=== PATIENT | male | born 1945 | race Caucasian/White ===

== ENCOUNTER 2020-07-02 17:56 | Emergency (ER) | payer OTHER ==
[2020-07-02 18:16] LABS: #Eosinphils 0.1 10x3/uL (0.0-0.5); #Monocytes 0.4 10x3/uL (0.0-1.1); #Neutrophils 4.6 10x3/uL (1.5-8.4); %Basophils 0.3 % (0.0-2.0); %Eosinophils 1.3 % (0.0-6.0); %Lymphocytes 15.1 % (18.0-47.0); %Monocytes 7.2 % (0.0-10.0); %Neutrophils 75.6 % (40.0-75.0); Hemoglobin 12.3 g/dL (13.5-17.5); Mean Corpuscular HGB CONC 33.2 g/dL (32.0-36.0); Mean Corpuscular Hemoglobin 28.8 pg (27.0-33.0); Mean Corpuscular Volume 86.9 fl (81.2-95.1); Mean Platelet Volume 9.8 fl (7.4-10.4); Platelet Count 141 10x3/uL (150-450); RBC Distribution Width 12.5 % (11.5-14.5); Red Blood Cell (RBC) Count 4.27 10x6/uL (4.32-5.72); White Blood Cell (WBC) Count 6.1 10x3/uL (3.5-10.5)
[2020-07-02 18:27] LABS: Acetaminophen Less than 6.0 mcg/mL (10.0-30.0); Alcohol Less than 10 mg/dL (Less than 10); Salicylate Less than 8.0 mg/dL (15.0-30.0)
[2020-07-02 18:28] LABS: ALT (SGPT) 8 U/L (8-55); AST (SGOT) 14 U/L (5-34); Albumin 3.2 g/dL (3.4-4.8); Alkaline Phosphatase 69 U/L (40-110); Anion Gap 12 mmol/L (10-20); BUN (Urea Nitrogen) 21 mg/dL (8.4-25.7); Bilirubin, Total 0.4 mg/dL (0.2-1.2); Calc. Creatinine Clearance 0 mL/min (70-130); Calcium 7.9 mg/dL (7.8-10.44); Carbon Dioxide 26 mmol/L (23-31); Chloride 102 mmol/L (98-107); Globulin 2.2 g/dL (2.4-3.5); Glucose 111 mg/dL (83-110); Lipase 67 U/L (8-78); Potassium 3.5 mmol/L (3.5-5.1); Protein, Total 5.4 g/dL (5.8-8.1); Sodium 136 mmol/L (136-145)
[2020-07-02 20:10] LABS: Bilirubin Neg (Negative); Blood, Urine Negative (Negative); Clarity Clear (Clear); Glucose, Urine (Dipstick) Normal (Negative); Ketone, Urine Negative (Negative); Leukocyte Negative (Negative); Nitrite Negative (Negative); Protein, Urine (Dipstick) Negative (Neg-Trace); Specific Gravity, Urine 1.005 (1.002-1.036); Urobilinogen Normal mg/dL (Less than 2)
[2020-07-02 20:18] LABS: Amphetamine Not Detected (NotDetected); Barbiturates Screen Not Detected (NotDetected); Benzodiazepine Screen Not Detected (NotDetected); Cocaine Metabolite Screen Not Detected (NotDetected); Methadone Not Detected (NotDetected); Methamphetamine Not Detected (NotDetected); Opiate Screen Not Detected (NotDetected); Oxycodone Screen Not Detected (NotDetected); Phencyclidine (PCP) Not Detected (NotDetected); THC/Cannabinoid Screen Not Detected (NotDetected); Tricyclic Screen Not Detected (NotDetected)
== END 2020-07-03 13:43 | disposition short-term general hospital (02) ==
LOC: CSHERS 17:56
DX: R41.82 Altered mental status, unspecified (principal); R55 Syncope and collapse; E03.9 Hypothyroidism, unspecified; I10 Essential (primary) hypertension; Z79.899 Other long term (current) drug therapy
CPT/HCPCS: 70450; 71045; 71275; 74174; 80053; 80306; 80307; 81003; 83690; 84484; 85025; 93005

== ENCOUNTER 2020-07-23 12:49 | Observation (INO) | payer OTHER ==
[2020-07-23 13:25] LABS: #Eosinphils 0.1 10x3/uL (0.0-0.5); #Monocytes 0.3 10x3/uL (0.0-1.1); #Neutrophils 4.4 10x3/uL (1.5-8.4); %Basophils 0.4 % (0.0-2.0); %Eosinophils 1.6 % (0.0-6.0); %Lymphocytes 10.6 % (18.0-47.0); %Monocytes 6.2 % (0.0-10.0); %Neutrophils 80.8 % (40.0-75.0); Hemoglobin 12.6 g/dL (13.5-17.5); Mean Corpuscular HGB CONC 32.8 g/dL (32.0-36.0); Mean Corpuscular Hemoglobin 28.9 pg (27.0-33.0); Mean Corpuscular Volume 88.1 fl (81.2-95.1); Mean Platelet Volume 9.6 fl (7.4-10.4); Platelet Count 146 10x3/uL (150-450); RBC Distribution Width 12.5 % (11.5-14.5); Red Blood Cell (RBC) Count 4.36 10x6/uL (4.32-5.72); White Blood Cell (WBC) Count 5.5 10x3/uL (3.5-10.5)
[2020-07-23 14:05] LABS: Bilirubin Neg (Negative); Blood, Urine Negative (Negative); Clarity Clear (Clear); Glucose, Urine (Dipstick) Normal (Negative); Ketone, Urine Negative (Negative); Leukocyte 25 (Negative); Nitrite Negative (Negative); Protein, Urine (Dipstick) 30 mg/dl (Neg-Trace)
[2020-07-23 14:26] LABS: ALT (SGPT) 11 U/L (8-55); AST (SGOT) 13 U/L (5-34); Albumin 3.3 g/dL (3.4-4.8); Alkaline Phosphatase 73 U/L (40-110); Anion Gap 11 mmol/L (10-20); BUN (Urea Nitrogen) 22 mg/dL (8.4-25.7); Bilirubin, Total 0.4 mg/dL (0.2-1.2); Calc. Creatinine Clearance 0 mL/min (70-130); Calcium 8.5 mg/dL (7.8-10.44); Carbon Dioxide 27 mmol/L (23-31); Chloride 105 mmol/L (98-107); Globulin 2.3 g/dL (2.4-3.5); Glucose 120 mg/dL (83-110); Magnesium 2.1 mg/dL (1.6-2.6); Potassium 4.2 mmol/L (3.5-5.1); Protein, Total 5.6 g/dL (5.8-8.1); Sodium 139 mmol/L (136-145)
[2020-07-23 14:40] LABS: RBC/HPF 0-3 HPF (0-3)
[2020-07-23 14:41] LABS: Bacteria/HPF Rare-Few HPF (None Seen); Squamous Epithelial 0-3 HPF (0-3)
[2020-07-23 16:29] LABS: Troponin I Less than 0.010 ng/mL (< 0.028)
[2020-07-23] MEDS ORDERED: hydrALAZINE 25 MG TAB ONE (16:32)
[2020-07-23] MEDS ORDERED: Acetaminophen 325 MG TAB PO PRN (16:35)
[2020-07-23] MEDS ORDERED: Ondansetron PF 4 MG/2 ML Vial IVP PRN (16:35)
[2020-07-23] MEDS ORDERED: hydrALAZINE 20 MG/ML VIAL SLOW IVP PRN (16:42)
[2020-07-23] MEDS ORDERED: Nitroglycerin 0.4 MG TAB (25 Tab Bottle) SL PRN (16:45)
[2020-07-23 18:35] VITALS: BMI 25.4
[2020-07-23 19:35] LABS: Troponin I 0.011 ng/mL (< 0.028)
[2020-07-23] MEDS ORDERED: Tamsulosin HCl 0.4 MG CAP PO SCH (21:00)
[2020-07-24 05:07] LABS: #Eosinphils 0.1 10x3/uL (0.0-0.5); #Monocytes 0.4 10x3/uL (0.0-1.1); #Neutrophils 3.7 10x3/uL (1.5-8.4); %Basophils 0.4 % (0.0-2.0); %Eosinophils 2.3 % (0.0-6.0); %Monocytes 7.8 % (0.0-10.0); %Neutrophils 71.3 % (40.0-75.0); Hemoglobin 13.1 g/dL (13.5-17.5); Mean Corpuscular HGB CONC 33.2 g/dL (32.0-36.0); Mean Corpuscular Hemoglobin 28.7 pg (27.0-33.0); Mean Corpuscular Volume 86.6 fl (81.2-95.1); Mean Platelet Volume 9.8 fl (7.4-10.4); Platelet Count 156 10x3/uL (150-450); RBC Distribution Width 12.6 % (11.5-14.5); Red Blood Cell (RBC) Count 4.56 10x6/uL (4.32-5.72); White Blood Cell (WBC) Count 5.2 10x3/uL (3.5-10.5)
[2020-07-24 05:14] LABS: Anion Gap 12 mmol/L (10-20); BUN (Urea Nitrogen) 19 mg/dL (8.4-25.7); Calc. Creatinine Clearance 72 mL/min (70-130); Calcium 9.1 mg/dL (7.8-10.44); Carbon Dioxide 24 mmol/L (23-31); Chloride 107 mmol/L (98-107); Glucose 90 mg/dL (83-110); Potassium 3.8 mmol/L (3.5-5.1); Sodium 139 mmol/L (136-145)
[2020-07-24] MEDS ORDERED: Lisinopril 2.5 MG TAB PO SCH (09:00)
[2020-07-24] MEDS ORDERED: Lisinopril 20 MG TAB PO SCH (11:45)
[2020-07-24] MEDS ORDERED: Carvedilol 25 MG TAB PO SCH (11:45)
[2020-07-24] MEDS ORDERED: Levothyroxine 150 MCG TAB PO SCH ×2 (11:45→15:00)
[2020-07-24] MEDS ORDERED: Hydrochlorothiazide 25 MG TAB PO SCH ×2 (12:00→15:00)
[2020-07-24] MEDS ORDERED: Atorvastatin Calcium 20 MG TAB PO SCH (13:00)
[2020-07-24] MEDS ORDERED: Amlodipine 5 MG TAB PO SCH (13:00)
[2020-07-24] MEDS ORDERED: Atenolol 25 MG TAB PO SCH (13:00)
[2020-07-24] MEDS: Aspirin 81 mg Enteric Coated Tablet PO SCH (15:11)
[2020-07-24 16:10] LABS: SARS-CoV-2 NAA Rapid Test Not Detected (NotDetected)
[2020-07-24] MEDS: Carvedilol 25 MG TAB PO SCH (20:18)
[2020-07-25] MEDS ORDERED: Levothyroxine 150 MCG TAB PO SCH (06:00)
[2020-07-25] MEDS: Carvedilol 25 MG TAB PO SCH (08:54)
[2020-07-25] MEDS ORDERED: Lisinopril 20 MG TAB PO SCH (09:00)
[2020-07-25] MEDS ORDERED: Hydrochlorothiazide 25 MG TAB PO SCH (09:00)
[2020-07-25] MEDS: Aspirin 81 mg Enteric Coated Tablet PO SCH (15:31)
[2020-07-25 18:14] VITALS: BP 158/59; TEMP 96.6
== END 2020-07-25 18:14 ==
LOC: CSHERS 12:49 → CSHTELE 18:02
PROVIDERS: ADMIT Family Medicine; ATTEND Physician Assistant Medical
DX: R55 Syncope and collapse (principal); E03.9 Hypothyroidism, unspecified; N40.0 Benign prostatic hyperplasia without lower urinary tract symptoms; I25.10 Atherosclerotic heart disease of native coronary artery without angina pectoris; I12.9 Hypertensive chronic kidney disease with stage 1 through stage 4 chronic kidney disease, or unspecified chronic kidney disease; N18.2 Chronic kidney disease, stage 2 (mild); Z97.0 Presence of artificial eye; Z20.822 Contact with and (suspected) exposure to COVID-19; Z79.82 Long term (current) use of aspirin; Z79.899 Other long term (current) drug therapy
CPT/HCPCS: 36415; 70450; 71045; 72125; 80048; 80053; 81003; 81015; 83735; 84439; 84443; 84484; 85025; 93005; 93306; 94760; G0378; U0002; U0003; U0005

== ENCOUNTER 2020-09-29 22:11 | Emergency (ER) | payer OTHER ==
[2020-09-29 23:07] LABS: ALT (SGPT) 12 U/L (8-55); AST (SGOT) 17 U/L (5-34); Albumin 3.9 g/dL (3.4-4.8); Alkaline Phosphatase 78 U/L (40-110); Anion Gap 15 mmol/L (10-20); BUN (Urea Nitrogen) 27 mg/dL (8.4-25.7); Bilirubin, Total 0.6 mg/dL (0.2-1.2); Calc. Creatinine Clearance 0 mL/min (70-130); Calcium 9.9 mg/dL (7.8-10.44); Carbon Dioxide 27 mmol/L (23-31); Chloride 103 mmol/L (98-107); Globulin 3.2 g/dL (2.4-3.5); Glucose 97 mg/dL (83-110); Potassium 3.9 mmol/L (3.5-5.1); Protein, Total 7.1 g/dL (5.8-8.1); Sodium 141 mmol/L (136-145)
== END 2020-09-30 00:31 ==
LOC: CSHERS 22:11
DX: S80.212A Abrasion, left knee, initial encounter (principal); E03.9 Hypothyroidism, unspecified; I10 Essential (primary) hypertension; N28.9 Disorder of kidney and ureter, unspecified; Z79.899 Other long term (current) drug therapy; E78.5 Hyperlipidemia, unspecified; W19.XXXA Unspecified fall, initial encounter
CPT/HCPCS: 80053; 84484; 93005

== ENCOUNTER 2020-12-08 22:36 | Observation (INO) | payer OTHER ==
[2020-12-08 22:58] VITALS: BMI 25.2
[2020-12-09] MEDS ORDERED: Acetaminophen 325 MG TAB PO PRN (01:22)
[2020-12-09 04:47] LABS: #Eosinphils 0.3 10x3/uL (0.0-0.5); #Monocytes 0.7 10x3/uL (0.0-1.1); #Neutrophils 4.7 10x3/uL (1.5-8.4); %Basophils 0.5 % (0.0-2.0); %Eosinophils 3.8 % (0.0-6.0); %Lymphocytes 11.1 % (18.0-47.0); %Monocytes 11.1 % (0.0-10.0); %Neutrophils 72.9 % (40.0-75.0); Hemoglobin 12.5 g/dL (13.5-17.5); Mean Corpuscular HGB CONC 32.8 g/dL (32.0-36.0); Mean Corpuscular Hemoglobin 29.3 pg (27.0-33.0); Mean Corpuscular Volume 89.4 fl (81.2-95.1); Mean Platelet Volume 9.5 fl (7.4-10.4); Platelet Count 186 10x3/uL (150-450); RBC Distribution Width 12.2 % (11.5-14.5); Red Blood Cell (RBC) Count 4.26 10x6/uL (4.32-5.72); White Blood Cell (WBC) Count 6.5 10x3/uL (3.5-10.5)
[2020-12-09] MEDS: Levothyroxine Sodium 100 MCG TAB PO SCH (04:57)
[2020-12-09 04:59] LABS: Anion Gap 14 mmol/L (10-20); BUN (Urea Nitrogen) 25 mg/dL (8.4-25.7); Calc. Creatinine Clearance 55 mL/min (70-130); Calcium 8.9 mg/dL (7.8-10.44); Carbon Dioxide 23 mmol/L (23-31); Cardiac Risk 4.6 (Less than 4.5); Chloride 107 mmol/L (98-107); Cholesterol 181 mg/dl (< 200 Desired); Glucose 80 mg/dL (83-110); HDL Cholesterol 39 mg/dL (>60 Neg Risk); LDL Cholesterol, Calculated 122 mg/dL; Potassium 3.9 mmol/L (3.5-5.1); Sodium 140 mmol/L (136-145); Triglycerides 99 mg/dL (Less than 150)
[2020-12-09 05:20] LABS: Syphilis Antibody Nonreactive (Nonreactive); Syphilis Antibody Index 0.06 S/CO (<1.00 Non-Reactive)
[2020-12-09] MEDS ORDERED: Aspirin 81 mg Enteric Coated Tablet PO SCH (09:00)
[2020-12-09] MEDS ORDERED: Cyanocobalamin 1000 MCG/ML VIAL IM SCH (09:00)
[2020-12-09] MEDS: Aspirin Chewable 81 MG TAB PO SCH (09:32)
[2020-12-09] MEDS: Enoxaparin Sodium 40 MG/0.4 ML SYRINGE SC SCH (09:32)
[2020-12-09] MEDS: Amlodipine 10 MG TAB PO SCH (09:32)
[2020-12-09] MEDS: Carvedilol 12.5 MG TAB PO SCH ×2 (09:33→17:37)
[2020-12-09 13:43] LABS: Amphetamine Not Detected (NotDetected); Barbiturates Screen Not Detected (NotDetected); Benzodiazepine Screen Not Detected (NotDetected); Cocaine Metabolite Screen Not Detected (NotDetected); Methadone Not Detected (NotDetected); Methamphetamine Not Detected (NotDetected); Opiate Screen Not Detected (NotDetected); Oxycodone Screen Not Detected (NotDetected); Phencyclidine (PCP) Not Detected (NotDetected); THC/Cannabinoid Screen Not Detected (NotDetected); Tricyclic Screen Not Detected (NotDetected)
[2020-12-09] MEDS ORDERED: Atorvastatin Calcium 40 MG TAB PO SCH (21:00)
[2020-12-10] MEDS: Levothyroxine Sodium 100 MCG TAB PO SCH (05:44)
[2020-12-10] MEDS: Aspirin Chewable 81 MG TAB PO SCH (09:55)
[2020-12-10] MEDS: Amlodipine 10 MG TAB PO SCH (10:11)
[2020-12-10] MEDS: Carvedilol 12.5 MG TAB PO SCH (10:11)
[2020-12-10] MEDS: Enoxaparin Sodium 40 MG/0.4 ML SYRINGE SC SCH (10:12)
[2020-12-10 10:52] VITALS: TEMP 98.2
[2020-12-10 19:34] VITALS: BP 156/77
== END 2020-12-10 13:25 ==
LOC: CSHTELE 22:36 → EEVIPCON 22:36
PROVIDERS: ADMIT Family Medicine; ATTEND Internal Medicine
DX: R27.0 Ataxia, unspecified (principal); F03.90 Unspecified dementia, unspecified severity, without behavioral disturbance, psychotic disturbance, mood disturbance, and anxiety; I12.9 Hypertensive chronic kidney disease with stage 1 through stage 4 chronic kidney disease, or unspecified chronic kidney disease; N18.31 Chronic kidney disease, stage 3a; E03.9 Hypothyroidism, unspecified
CPT/HCPCS: 70551; 80048; 80061; 80306; 82607; 82746; 85025; 86780; 93306; 93880; 96372; G0378; J1650; J3420